=== PATIENT | female | born 1990 | race Caucasian/White ===

== ENCOUNTER 2018-01-06 00:59 | Emergency (ER) | payer BC ==
[~2018-01-06] VITALS: Ht 165.1 cm; Wt 95.3 kg
[~2018-01-06 00:59] MED LIST: APRI28 PO; ASCO10003 PO; ZLF/100 PO
[2018-01-06 01:02] VITALS: TEMP 36.9; Ht 165.1 cm; Wt 95.3 kg
[2018-01-06] MEDS ORDERED: FENTANYL CITRATE INJ 50 MCG/1 ML 2 ML VIAL IV STA (01:18)
[2018-01-06] MEDS ORDERED: SODIUM CHLORIDE 0.9% 1000ML 1,000 ML IV STA (01:18)
[2018-01-06] MEDS ORDERED: ONDANSETRON INJ 2 MG/ML 2 ML VIAL IV STA ×2 (01:18→02:08)
[2018-01-06] MEDS ORDERED: PRLSR20 PO (01:27)
--- NOTE | 2018-01-06 01:32 | EMERGENCY ROOM VISIT NOTE ---
History Report prepared by Trever: Marie Cao Under the Supervision of: Dr. Dylan Hall M.D. First contact with patient: 01:08 Chief Complaint: ABDOMINAL PAIN Stated Complaint: STOMACH PAIN History of Present Illness The patient is a 27 year old female who presents to the Emergency Room with complaints of worsening abdominal pain starting 1.5 months ago. The patient states that she has colonoscopy scheduled for tomorrow morning. She reports that she has been drinking Gatorade and Miralax. She states that she has been moving her bowels and it has been yellow and chunky. She states that yesterday she woke up with the pain much worse in her lower abdomen and had diarrhea. She reports that there was blood in her diarrhea. She notes that this happens intermittently since the abdominal pain started. The patient states that she called her doctor who told her if having worsening pain and chills to come to the ED. She reports that she tried to hold off, but the pain is too much. The patient currently rates her pain as a 7/10 in severity. The patient complains of nausea. The patient denies any imaging done of her abdomen, ever having a colonoscopy before, a family history of Crohn, vomiting, chest pain, shortness of breath, calf pain, leg swelling, and burning with urination. She notes that her urine is very dark and she is not producing enough. Source of History: patient Onset: 1.5 months ago Position: abdomen Symptom Intensity: 7/10 Timing: worsening Associated Symptoms: + nausea, + hematochezia, + diarrhea, No chest pain, No SOB, No vomiting, No urinary symptoms Note: The patient denies calf pain and leg swelling. Review of Systems See HPI for pertinent positives & negatives. A total of 10 systems reviewed and were otherwise negative. Past Medical & Surgical Medical Problems: (1) Anxiety (2) control (3) Heart burn Family History Diabetes mellitus FHx: irritable bowel syndrome Hypertension Social History Smoking Status: Never Smoker Alcohol Use: none Marital Status: Housing Status: lives with family Occupation Status: employed Current/Historical Medications Scheduled Ethinyl Estrad/Desogestrel (Apri), 1 TABLET PO DAILY Omeprazole (Prilosec), 20 MG PO DAILY Sertraline HCl (Sertraline HCl), 150 MG PO DAILY Allergies Coded Allergies: No Known Allergies (Unverified , 01/06/18) Physical Exam Vital Signs Date Time Temp Pulse Resp B/P (MAP) Pulse Ox O2 Delivery O2 Flow Rate FiO2 01/06/18 02:45 75 18 116/72 97 01/06/18 02:22 75 18 116/72 97 Room Air 01/06/18 01:02 36.9 103 20 116/77 96 Room Air Physical Exam GENERAL: Patient is anxious appearing and in mild distress. EYES: No scleral icterus, unremarkable pupils. ENT: Mucous membranes moist, no nasal congestion. NECK: No masses appreciated, no meningismus, trachea is midline. RESPIRATORY: No dyspnea. Clear to auscultation and equal bilaterally. No wheeze , no rhonchi. CARDIOVASCULAR: Regular rate and rhythm. No murmurs, rubs, gallops appreciated. GASTROINTESTINAL: Abdomen soft, vague left lower quadrant tenderness to palpation, no peritonitis. Bowel sounds positive. No masses appreciated. BACK: No midline tenderness, no CVA tenderness EXTREMITIES: Normal motion all extremities, no cyanosis, no edema. NEUROLOGIC: Alert and oriented, no acute motor or sensory deficits, no focal weakness, cranial nerves grossly intact. SKIN: No rash, no jaundice, no diaphoresis. Medical Decision & Procedures ER Provider Diagnostic Interpretation: ABDOMEN OBSTRUCTION SERIES With 1 VIEW OF CHEST: The results were interpreted by me. Scant air throughout the left colon and rectum. No obstruction appreciated. No free air appreciated. Lungs are clear bilaterally. Laboratory Results 01/06/18 01:25 Red Blood Count 4.95, Mean Corpuscular Volume 84.8, Mean Corpuscular Hemoglobin 29.5, Mean Corpuscular Hemoglobin Concent 34.8, Mean Platelet Volume 9.3, Neutrophils (%) (Auto) 61.3, Lymphocytes (%) (Auto) 30.4, Monocytes (%) (Auto) 6.6, Eosinophils (%) (Auto) 1.4, Basophils (%) (Auto) 0.1, Neutrophils # (Auto) 5.53, Lymphocytes # (Auto) 2.75, Monocytes # (Auto) 0.60, Eosinophils # (Auto) 0.13, Basophils # (Auto) 0.01 01/06/18 01:25 Test 01/06/18 01:18 01/06/18 01:19 01/06/18 01:25 01/06/18 02:14 Urine Test NEG (NEG) Urine Color DK YELLOW Urine Appearance CLEAR (CLEAR) Urine pH 5.5 (4.5-7.5) Urine Specific [place] 1.023 (1.000-1.030) Urine Protein NEG (NEG) Urine Glucose (UA) NEG (NEG) Urine Ketones NEG (NEG) Urine Occult Blood NEG (NEG) Urine Nitrite NEG (NEG) Urine Bilirubin NEG (NEG) Urine Urobilinogen NEG (NEG) Urine Leukocyte Esterase NEG (NEG) Urine WBC (Auto) 1-5 /hpf (0-5) Urine RBC (Auto) 0-4 /hpf (0-4) Urine Hyaline Casts (Auto) 0 /lpf (0-5) Urine Epithelial Cells (Auto) >30 /lpf (0-5) Urine Bacteria (Auto) NEG (NEG) Urine Mucus PRESENT (NONE PRSENT) White Blood Count 9.04 K/uL (4.8-10.8) Red Blood Count 4.95 M/uL (4.2-5.4) Hemoglobin 14.6 g/dL (12.0-16.0) Hematocrit 42.0 % (37-47) Mean Corpuscular Volume 84.8 fL (80-100) Mean Corpuscular Hemoglobin 29.5 pg (25-34) Mean Corpuscular Hemoglobin Concent 34.8 g/dl (32-36) Platelet Count 228 K/uL (130-400) Mean Platelet Volume 9.3 fL (7.4-10.4) Neutrophils (%) (Auto) 61.3 % Lymphocytes (%) (Auto) 30.4 % Monocytes (%) (Auto) 6.6 % Eosinophils (%) (Auto) 1.4 % Basophils (%) (Auto) 0.1 % Neutrophils # (Auto) 5.53 K/uL (1.4-6.5) Lymphocytes # (Auto) 2.75 K/uL (1.2-3.4) Monocytes # (Auto) 0.60 K/uL (0.11-0.59) Eosinophils # (Auto) 0.13 K/uL (0-0.5) Basophils # (Auto) 0.01 K/uL (0-0.2) RDW Standard Deviation 38.9 fL (36.4-46.3) RDW Coefficient of Variation 12.6 % (11.5-14.5) Immature Granulocyte % (Auto) 0.2 % Immature Granulocyte # (Auto) 0.02 K/uL (0.00-0.02) Anion Gap 7.0 mmol/L (3-11) Est Creatinine Clear Calc Drug Dose 103.7 ml/min Estimated GFR () 97.6 Estimated GFR (Non- 84.2 BUN/Creatinine Ratio 6.5 (10-20) Calcium Level 8.5 mg/dl (8.5-10.1) Total Bilirubin 0.5 mg/dl (0.2-1) Direct Bilirubin 0.1 mg/dl (0-0.2) Aspartate Amino Transf (AST/SGOT) 20 U/L (15-37) Alanine Aminotransferase (ALT/SGPT) 35 U/L (12-78) Alkaline Phosphatase 92 U/L (45-117) C-Reactive Protein 0.54 mg/dl (0-0.29) Total Protein 8.1 gm/dl (6.4-8.2) Albumin 3.5 gm/dl (3.4-5.0) Lipase 124 U/L (73-393) Date/Time Source Procedure Growth Status 01/06/18 02:14 Stool C.difficile Toxin B Gene (PCR) - Final No C. difficile toxin B gene detected Complete Laboratory results as reviewed by me. Medications Administered Medications (Trade) Dose Ordered Sig/Cuco Route Start Time Stop Time Status Last Admin Dose Admin Sodium Chloride 1,000 ml @ 999 mls/hr Q1H1M STAT IV 01/06/18 01:18 01/06/18 02:18 DC 01/06/18 01:30 999 MLS/HR Fentanyl Citrate (Fentanyl Inj) 50 mcg NOW STAT IV 01/06/18 01:18 01/06/18 01:20 DC 01/06/18 01:31 50 MCG Ondansetron HCl (Zofran Inj) 4 mg NOW STAT IV 01/06/18 01:18 01/06/18 01:20 DC 01/06/18 01:30 4 MG Promethazine HCl 12.5 mg/Sodium Chloride 50.5 ml @ 204 mls/hr NOW STAT IV 01/06/18 02:08 01/06/18 02:22 DC 01/06/18 02:22 204 MLS/HR Ondansetron HCl (Zofran Inj) 4 mg NOW STAT IV 01/06/18 02:08 01/06/18 02:09 DC 01/06/18 02:22 4 MG Diphenhydramine HCl (Benadryl Inj) 25 mg NOW STAT IV 01/06/18 02:08 01/06/18 02:09 DC 01/06/18 02:22 25 MG Ondansetron HCl (ZOFRAN ODT 4MG Home Pack) 1 homepack UD ONCE PO 01/06/18 02:45 01/06/18 02:46 DC 01/06/18 02:43 1 HOMEPACK ED Course 0111: The patient was evaluated in room A10. A complete history and physical exam was performed. 0118: Ordered Zofran Inj 4 mg IV, Fentanyl Inj 50 mcg IV, NSS 1000 ml @ 999 mls/ hr IV. 0204: I reevaluated the patient and she is feeling much better. She still has some nausea, but the pain has gone away. She would like more nausea medications to finish her colon cleanse. 0208: Ordered Zofran Inj 4 mg IV, Promethazine HCl 12.5 mg/Sodium Chloride 50.5 ml @ 204 mls/hr IV. 0240: Reevaluated the patient and she feels much better. Discussed results and discharge instructions: She verbalized understanding and agreement. The patient is ready for discharge. 0245: Ordered ondansetron HCl 1 homepack PO. Medical Decision Differential: Appendicitis, Diverticulitis, PUD/Gastritis, Biliary Pathology, UTI, Pyelonephritis, Renal Colic, Bowel Obstruction, Crohn's, IBS, IBD, amongst other pathologies entertained. 27 yr old female with 1+ month abdominal cramping/diarrhea for which she is to have colonoscopy this morning, however with not eating and having to drink colon prep her pain has increased dramatically along with nausea. Symptoms vastly improved with above and doing well a few hours later in regards to pain. Given further nausea meds to help her be able to take rest of colon prep. There is no current evidence of obstruction, she is not vomiting, and she has benign/soft abdomen. With unremarkable labs and patient feeling much better I feel further imaging is not current warranted. She is stable and looks well. She and significant other comfortable with discharge and understand RTED if worsening or other concerns. Medication Reconcilliation Current Medication List: was personally reviewed by me Blood Pressure Screening Patient's blood pressure: Normal blood pressure Blood pressure disposition: Did not require urgent referral Impression Primary Impression: Nausea Additional Impression: Abdominal pain, left lower quadrant Scribe Attestation The scribe's documentation has been prepared under my direction and personally reviewed by me in its entirety. I confirm that the note above accurately reflects all work, treatment, procedures, and medical decision making performed by me. Departure Information Dispostion Home / Self-Care Referrals Romy Bowden (PCP) Forms HOME CARE DOCUMENTATION FORM, IMPORTANT VISIT INFORMATION Patient Instructions My [facility] Additional Instructions Follow up with Colonoscopy as planned. Try to finish your bowel prep. Use nausea medications as necessary. Return if worsening pain, fevers, passing out or other concerns. We are always here to help. Problem Qualifiers
[2018-01-06 01:33] LABS: BASO % 0.1 %; BASO ABS # 0.01 K/uL (0-0.2); EOS % 1.4 %; EOS ABS # 0.13 K/uL (0-0.5); HEMOGLOBIN 14.6 g/dL (12.0-16.0); IG# 0.02 K/uL (0.00-0.02); LYMPH % 30.4 %; LYMPH ABS # 2.75 K/uL (1.2-3.4); MEAN CELL VOLUME 84.8 fL (80-100); MEAN CORPUSCULAR HEMOGLOBIN 29.5 pg (25-34); MEAN CORPUSCULAR HGB CONC 34.8 g/dl (32-36); MEAN PLATELET VOLUME 9.3 fL (7.4-10.4); MONO % 6.6 %; NEUT % 61.3 %; NEUT ABS # 5.53 K/uL (1.4-6.5); PLATELET COUNT 228 K/uL (130-400); RED CELL DISTRIBUTION WIDTH CV 12.6 % (11.5-14.5); RED CELL DISTRIBUTION WIDTH SD 38.9 fL (36.4-46.3); WHITE BLOOD COUNT 9.04 K/uL (4.8-10.8)
[2018-01-06 01:54] LABS: ALBUMIN 3.5 gm/dl (3.4-5.0); CALCIUM 8.5 mg/dl (8.5-10.1); CREATININE 0.93 mg/dl (0.60-1.20); POTASSIUM 3.5 mmol/L (3.5-5.1)
[2018-01-06 01:57] LABS: TOTAL PROTEIN 8.1 gm/dl (6.4-8.2)
[2018-01-06] MEDS ORDERED: PROMETHAZINE HCL INJ 12.5 MG in SODIUM CHLORIDE 0.9% 50ML 50 ML IV STA (02:08)
[2018-01-06] MEDS ORDERED: DiphenhydrAMINE HCL 50 MG/ML VIAL IV STA (02:08)
[2018-01-06 02:45] VITALS: BP 116/72; PULSE 75; O2SAT 97
[2018-01-06] MEDS ORDERED: ONDANSETRON HOME PACK 4MG OD TAB PO ONE (02:45)
--- NOTE | 2018-01-06 06:31 | DIAGNOSTIC IMAGING REPORT ---
ABDOMEN 2VIEW W/PA CHEST RTN CLINICAL HISTORY: abdominal discomfort, diarrhea post bowel regimen pain COMPARISON STUDY: 10/20/2017 FINDINGS: The soft tissues, psoas shadows, renal outlines and intestinal gas pattern appear normal. There is no evidence for bowel obstruction. There is no evidence for free intraperitoneal air. No abnormal abdominal calcifications are seen. A frontal view of the chest was performed and is unremarkable. IMPRESSION: Normal study. The above report was generated using voice recognition software. It may contain grammatical, syntax or spelling errors. Electronically signed by: Josue Darden M.D. 01/06/2018 6:30 AM Dictated Date/Time: 01/06/2018 6:29 AM
== END 2018-01-06 02:46 | disposition home or self-care (01) ==
LOC: C.EDB 01:00 → C.EDA 02:46
DX: R10.32 Left lower quadrant pain (principal); R11.0 Nausea; F41.9 Anxiety disorder, unspecified; Z79.3 Long term (current) use of hormonal contraceptives; Z79.899 Other long term (current) drug therapy; Z83.3 Family history of diabetes mellitus; Z82.49 Family history of ischemic heart disease and other diseases of the circulatory system; Z83.79 Family history of other diseases of the digestive system

== ENCOUNTER 2024-10-21 05:57 | Observation (INO) ==
--- NOTE | 2024-10-11 15:49 | PAT Medication Instructions ---
Medication Instructions Date of Service October 11, 2024 Home Medications multivitamin 1 tab PO QAM desvenlafaxine succinate 100 mg tablet,extended release 24 hr (Pristiq) 100 mg PO QAM desvenlafaxine succinate 25 mg tablet,extended release 24 hr (Pristiq) 25 mg PO QAM gabapentin 300 mg capsule 300 mg PO QPM DO NOT take the morning of surgery multivitamin 1 tab PO QAM Take morning of surgery With a small sip of water, OTHERWISE NOTHING TO EAT OR DRINK AFTER MIDNIGHT: desvenlafaxine succinate 100 mg tablet,extended release 24 hr (Pristiq) 100 mg PO QAM desvenlafaxine succinate 25 mg tablet,extended release 24 hr (Pristiq) 25 mg PO QAM Take evening before surgery gabapentin 300 mg capsule 300 mg PO QPM Other Notes If you have any questions please call us at [phone] or [phone] or [phone] or [phone]
--- NOTE | 2024-10-14 14:24 | Anesthesiology Consultation ---
Date of Service October 14, 2024 Assessment & Plan (1) Encounter for pre-operative examination: Chart Review Chart Review: Acceptable Risk for Surgery and Patient seen in Pre Admission Testing - Check test AM DOS Per PAT appt on 10/14/24, no recent illness/disease exposures, illness related symptoms, or recent illness/disease positive tests. Will leave to surgeon's discretion if preop Covid testing needed Teaching & Discussion Pre-Anesthesia Teaching/Discussion Notes: Instructed NPO after midnight before surgery,except medications with 15 cc of water. Medication instructions provided according to the [facility] guidelines. History Surgery Operation Date: 10/21/24 07:30 Proposed Procedures p C5-C6 Anterior Cervical Discectomy Fusion, with Spinal Cord Monitoring - Mika Butler MD Height/Weight Height: 5 ft 6 in Weight: 128.1 kg Allergies Allergy/AdvReac Type Severity Reaction Status Date / Time No Known Allergies Allergy Mild Verified 10/11/24 15:17 Medications Home Medications Medication Instructions Recorded Confirmed Last Taken multivitamin 1 tab PO QAM 12/03/22 10/11/24 12/04/22 07:00 desvenlafaxine succinate 100 mg 100 mg PO QAM 11/12/23 10/11/24 Unknown tablet,extended release 24 hr (Pristiq) desvenlafaxine succinate 25 mg 25 mg PO QAM 11/12/23 10/11/24 Unknown tablet,extended release 24 hr (Pristiq) gabapentin 300 mg capsule 300 mg PO QPM 07/26/24 10/11/24 Unknown Past Medical History Medical History (Updated 10/17/24 @ 11:48 by Carol Gudino PA-C) Acid reflux diet controlled; uses occ OTC antacids at times ADD (attention deficit disorder) no meds Anxiety and depression Cervical disc herniation full rom, but very painful Cervical radiculopathy Cervical spinal stenosis History of COVID-19 05/2022>RESOLVED History of palpitations work up in past showed no issues ~ October 2023 Hx of migraines once per month IBS (irritable bowel syndrome) Paresthesia of left upper extremity from cervical issue PCOS (polycystic ovarian syndrome) Exercise / Class Metabolic Activity II 4-5 Yardwork/Stairs/Walk up hill (one flight of stairs - no chest pain or SOB ) Past Family History Family History Grandfather (Paternal) Myocardial infarction Father Diabetes Hypertension Mother Hypertension Other No family history of adverse response to anesthesia Denies family history of Ovarian cancer Prostate cancer Breast cancer Colorectal cancer Past Surgical History Surgical History H/O ovarian cystectomy (12/05/22) R serous cystadenoma removed, endometriosis diagnosed intraop at same time. History of esophagogastroduodenoscopy (EGD) Hx of colonoscopy with polypectomy [place] teeth removed Past Anesthesia History No Hx of Anesthesia Complications and No Family Hx of Anesthesia Complications History of PONV No Hx of PONV and No Hx of Motion Sickness Social History Smoking Status: Never smoker Do You Dip or Chew Tobacco: No Hx Alcohol Use: Yes alcohol intake frequency: holidays/special occasions only Hx Substance Use: No substance use type: does not use Review of Systems - Hx of snoring - no sleep study Patient denies chest pain, shortness of breath, dyspnea on exertion, cough, wheezing, palpitations. No hx of seizures, stroke, AL. No hx of blood clots or blood transfusions Physical Exam Vital Signs VITALS BP 10/84 (manually) P 75 TEMP 97.8 SP02 98% RESP 16 Constitutional no acute distress ENMT Mouth: no TMJ clicking Thyromental Distance: > or= 3.5 Finger Breadths (3.5) Mallampati Class: I Neck + limited neck extension (significant) Respiratory normal respiratory effort; no respiratory distress Auscultation: lungs clear to auscultation bilaterally; no wheezes Cardiovascular Rate/Rhythm: regular rate and regular rhythm Heart Sounds: no murmur Vessels: no carotid bruit Musculoskeletal Spine: + pain with cervical ROM Extremities: extremities normal to inspection Psychiatric Orientation: alert Lab Results Anesthesia Preop Results Results Anesthesia Widget: WBC 5.97 K/ul (4.8-10.8) 10/14/24 Hgb 14.4 g/dl (12.0-16.0) 10/14/24 Hct 41.5 % (37.0-47.0) 10/14/24 Plt 250 K/uL (130-400) 10/14/24 Na 137 mmol/L (136-145) 10/14/24 K 3.8 mmol/L (3.5-5.1) 10/14/24 Cl 103 mmol/L (98-107) 10/14/24 CO2 27 mmol/L (21-32) 10/14/24 BUN 13 mg/dl (6-23) 10/14/24 Creat 0.95 mg/dl (0.6-1.2) 10/14/24 Glucose Level 86 mg/dl (70-99(Fasting)) 10/14/24 PT 10.3 Seconds (9.0-12.0) 10/14/24 PTT 29 Seconds (21-31) 10/14/24 INR 0.9 (0.9-1.1) 10/14/24 HA1c 5.4 % (4.5-5.6) 10/14/24 Blood Type A Positive 10/14/24 Antibody Screen NEGATIVE 10/14/24 Testing Electrocardiogram Date: 11/12/23 SR at 85bpm Normal EKG per confirming provider Other Testing Event monitor 12/19/23= SR with average HR of 85bpm (50-156bpm). No arrhythmia. No significant ectopy. There were 42 patient triggered events (SOB, chest pain, skipped beat, heart racing). Symptoms occurred during NSR and ST.
[2024-10-21] MEDS ORDERED: PROPOFOL IV EMULSION 10 MG/ML 100 ML VIAL IV ONE (06:43)
[2024-10-21] MEDS ORDERED: REMIFENTANIL HCL 1 MG VIAL IV ONE (06:43)
[2024-10-21] MEDS ORDERED: ACETAMINOPHEN 1000 MG/100 ML IV IV ONE (06:43)
[2024-10-21] MEDS ORDERED: fentaNYL citrate PF 100 MCG/2 ML VIAL IV PRN (06:49)
[2024-10-21] MEDS ORDERED: ATROPINE SULFATE 0.1 MG/ML 10ML SYR IV PRN (06:49)
[2024-10-21] MEDS ORDERED: ePHEDrine sulfate 50 MG/ML AMP IV PRN (06:49)
[2024-10-21] MEDS ORDERED: ONDANSETRON INJ 2 MG/ML 2 ML VIAL IV PRN ×2 (06:49→12:49)
[2024-10-21] MEDS ORDERED: HYDROmorphone INJ 2 MG/ML SYR/VIAL IV PRN (06:49)
[2024-10-21] MEDS ORDERED: ROCURONIUM BROMIDE 10 MG/ML 5 ML VIAL IV ONE (06:51)
[2024-10-21] MEDS ORDERED: NEOSTIGMINE METHYLSULFATE 1 MG/ML 10ML VIAL ONE (06:51)
[2024-10-21] MEDS: LR 15ML/HR IV SCH (06:51)
[2024-10-21] MEDS: LR 60ML/HR IV SCH (06:51)
[2024-10-21] MEDS ORDERED: MIDAZOLAM HCL 1 MG/ML 2ML VIAL ONE (06:51)
[2024-10-21] MEDS ORDERED: GLYCOPYRROLATE 0.2 MG/ML VIAL ONE (06:51)
[2024-10-21] MEDS ORDERED: LIDOCAINE 2% 2 ML VIAL/AMP(20MG/ML) INFIL ONE (06:51)
[2024-10-21] MEDS ORDERED: fentaNYL citrate PF 100 MCG/2 ML VIAL ONE (06:51)
[2024-10-21] MEDS ORDERED: DEXAMETHASONE SOD INJ 4 MG/ML VIAL ONE (06:51)
[2024-10-21] MEDS ORDERED: PROPOFOL IV EMULSION 10 MG/ML 20 ML VIAL IV ONE ×2 (06:51→07:55)
[2024-10-21] MEDS ORDERED: ONDANSETRON INJ 2 MG/ML 2 ML VIAL ONE (06:51)
[2024-10-21] MEDS ORDERED: KETAMINE HCL 10MG/ML SYR ONE (07:14)
[2024-10-21] MEDS ORDERED: DexMEDEtomidine HCL IV 100 MCG/ML VIAL IV ONE (07:14)
[2024-10-21] MEDS ORDERED: SUCCINYLCHOLINE CHLORIDE 20 MG/ML 10 ML VIAL IV ONE (07:22)
--- NOTE | 2024-10-21 07:22 | History & Physical Bridge Note ---
Date of Service October 21, 2024 History & Physical Bridge Note I have examined the patient, reviewed the History & Physical and in the interval since the performance of the History & Physical I have noted the following changes of clinical significance: no changes noted
[2024-10-21] MEDS: ceFAZolin 3000MG 3,000 MG/72.5 ML BAG IV SCH (07:30)
[2024-10-21] MEDS ORDERED: HYDROmorphone INJ 2 MG/ML SYR/VIAL ONE (07:57)
[2024-10-21] MEDS ORDERED: PROMETHAZINE HCL INJ 25 MG/ML 1 ML VIAL ONE (08:37)
[2024-10-21] MEDS: FLOSEAL HEMOSTATIC MATRIX 10ML TOP ONE (10:22)
[2024-10-21] MEDS: VANCOMYCIN HCL 1000MG/20ML VIAL ONE (10:23)
--- NOTE | 2024-10-21 10:49 | Fluoroscopy Report ---
FL cervical 2-3V CLINICAL HISTORY: ACDF C5-C6 COMPARISON STUDY: None pertinent FLUOROSCOPY TIME: 29 seconds FLUOROSCOPY IMAGES: 5 EXPOSURE DOSE: 8.19 mGy FINDINGS: Fluoroscopic guidance for anterior discectomy and fusion was performed. C5-6 placement was localized. Refer to procedural report for analysis patient upon real-time fluoroscopic observations. IMPRESSION: As above ACT 112: Negative or not required by law. Electronically signed by: Nenita Velazquez M.D. 10/21/2024 10:48 AM
--- NOTE | 2024-10-21 10:50 | Operative Report ---
PG Post Operative Report Pre & Post Diagnosis Operation Date: 10/21/24 07:30 PREOPERATIVE DIAGNOSES: 1. Cervical radiculopathy. 2. C5-6 disc herniation. 3. Cervical stenosis. POSTOPERATIVE DIAGNOSES: 1. Cervical radiculopathy. 2. C5-6 disc herniation. 3. Cervical stenosis. I identified the patient and participated in the time-out.: Yes Procedure PROCEDURES PERFORMED: 1. C5-6 anterior cervical decompression and fusion (80692). 2. C5-6 interbody spacer placement with arthrodesis (31637). 3. C5, C6 anterior instrumentation (separate from interbody spacer) (73619). 6. Allograft for Spine Fusion (82839). Surgeon Mika Butler MD Sludge Mill Operator Joss Meade PA-C Estimated Blood Loss 25 Findings Consistent with Post-Op Diagnosis Specimens None Drains Aris Anesthesia Type General Complications none Disposition Disposition: Recovery Room Indications The patient has suffered from severe and unrelenting symptoms despite exhaustive conservative management. After discussing the benefits and risks of continued conservative management versus operative intervention, the patient elected to proceed with surgery. Description of Procedure Informed consent was obtained prior to the procedure. In the preoperative holding area, the patient's anterior neck was marked with a marking pen. The patient was taken to the operating room and anesthesia was initiated. The patient was placed supine on a regular operating room table. The neck was placed in a neutral position. All prominences were carefully padded. The anterior neck was prepped and draped in typical sterile fashion. Antibiotics were administered. A timeout was performed. Neuromonitoring was utilized, including somatosensory evoked potentials, running electromyography and motor evoked potentials. These remained stable throughout the case. A #10 blade was used to incise the skin. Bovie electrocautery was used to maintain meticulous hemostasis as dissection was completed through the subcutaneous and platysma. The interval between the sternocleidomastoid and the strap musculature was identified and bluntly dissected. The carotid sheath was palpated, retracted laterally and protected. The anterior cervical spine was identified and exposed. A spinal needle was placed into the disc space to confirm the appropriate levels using x-ray. The longus colli were carefully elevated off the anterior spine laterally. Care was taken to not dissect too laterally so as to protect the sympathetic chains. Anterior osteophytes were removed. Shumway pins were placed and a small amount of distraction was applied across the C5-6 disc space. The microscope was brought in. A total discectomy along with bilateral foraminotomies were completed. The posterior longitudinal ligament was taken down. The central thecal sac and the bilateral C6 exiting nerve roots were confirmed to be completely decompressed. The endplates were prepared. An interbody spacer was selected and implanted after being packed with allograft. An anterior cervical plate was selected and implanted. Screws were placed into the bodies of C5 and C6. The screws were locked into the plate. X-rays were taken and confirmed appropriate spacer and hardware position. The wound was thoroughly irrigated. Meticulous hemostasis was achieved. A single drain was placed deep. The platysma and subcutaneous were closed using braided, absorbable suture. The cutaneous was closed using monofilament absorbable suture. A sterile dressing was placed. At the end of the case, all instrument and sponge counts were correct. The patient was awoken from anesthesia without complication and taken to the PACU in stable condition. I attest to the content of the Intraoperative Record and any orders documented therein. Any exceptions are noted below.
--- NOTE | 2024-10-21 12:31 | Anesthesiology Progress Note ---
Date of Service October 21, 2024 Anesthesia Post Procedure Vital Signs Vital Signs: Temp Pulse Pulse Resp BP BP Pulse Ox 10/21/24 12:25 87 16 115/77 95 10/21/24 12:15 36.9 C 88 13 119/84 98 10/21/24 12:05 76 24 118/72 98 10/21/24 11:55 84 12 115/77 95 10/21/24 11:45 88 16 111/73 94 10/21/24 11:35 84 18 108/81 97 10/21/24 11:25 82 18 120/75 95 10/21/24 11:19 36.6 C 94 H 18 162/100 H 94 10/21/24 06:21 36.5 C 78 20 121/83 94 O2 Del Method O2 Flow Rate 10/21/24 12:25 Nasal Cannula 2 10/21/24 12:15 Nasal Cannula 2 10/21/24 12:05 Nasal Cannula 4 10/21/24 11:55 Nasal Cannula 4 10/21/24 11:45 Oxymask 10 10/21/24 11:35 Oxymask 15 10/21/24 11:25 Oxymask 15 10/21/24 11:19 Oxymask 15 10/21/24 06:21 Room Air Pain Intensity Bilateral Posterior Neck: Pain Intensity: 6 Transfer of Care Handoff Completed per policy Notes Mental Status: alert / awake / arousable and participated in evaluation Patient Amnestic to Procedure: Yes Nausea / Vomiting: adequately controlled Pain: adequately controlled Airway Patency, RR, SpO2: stable & adequate BP & HR: stable & adequate Hydration State: stable & adequate Anesthetic Complications: no major complications apparent and Pt Satisfied with anesthetic care
[2024-10-21] MEDS ORDERED: DO NOT ADMINISTER PNEUMOCOCCAL VACCINE PRN (12:49)
[2024-10-21] MEDS ORDERED: SOD PHOSPHATE/SOD BIPHOSPHATE ENEMA 132 ML BTL PR PRN (12:49)
[2024-10-21] MEDS ORDERED: hydrOXYzine HCl 25 MG TAB PO PRN (12:49)
[2024-10-21] MEDS ORDERED: ALUMINUM/MAGNESIUM SUSP 30 ML UDC PO PRN (12:49)
[2024-10-21] MEDS ORDERED: LORazepam 0.5 MG TAB PO PRN (12:49)
[2024-10-21] MEDS ORDERED: dexAMETHasone 8 MG in SYRINGE 0 ML IV PRN (12:49)
[2024-10-21] MEDS ORDERED: ACETAMINOPHEN 500 MG TAB PO PRN (12:49)
[2024-10-21] MEDS ORDERED: PROMETHAZINE 12.5 MG/50.5 ML BAG IV PRN (12:49)
[2024-10-21] MEDS ORDERED: diphenhydrAMINE Capsule 25 MG CAP PO PRN (12:49)
[2024-10-21] MEDS ORDERED: MAGNESIUM HYDROXIDE SUSP 30 ML UDC PO PRN (12:49)
[2024-10-21] MEDS ORDERED: FAMOTIDINE 20 MG TAB PO PRN (12:49)
[2024-10-21] MEDS ORDERED: DO NOT ADMINISTER FLU VACCINE PRN (12:49)
[2024-10-21] MEDS ORDERED: bisacodyL 10 MG SUPP PR PRN (12:49)
[2024-10-21] MEDS ORDERED: ONDANSETRON 4 MG OD TAB PO PRN (12:49)
[2024-10-21] MEDS ORDERED: RACEPINEPHRINE 2.25% NEBU SOLN 0.5 ML VIAL INH PRN (12:49)
[2024-10-21] MEDS ORDERED: LORazepam 2 MG/1 ML VIAL IV PRN (12:49)
[2024-10-21] MEDS ORDERED: NALOXONE HCL 0.4 MG/1 ML VIAL/CARP IV PRN (12:49)
[2024-10-21] MEDS ORDERED: HYDROmorphone INJ 1 MG/ML SYRINGE IV PRN (12:49)
[2024-10-21] MEDS: CYCLOBENZAPRINE HCL 10 MG TAB PO SCH (15:09)
[2024-10-21] MEDS: dexAMETHasone 6 MG in SYRINGE 0 ML IV SCH (15:09)
--- NOTE | 2024-10-21 15:46 | XRay Report ---
XR cervical spine 2 or 3V CLINICAL HISTORY: post-op spine surgery COMPARISON STUDY: Cervical spine MRI July 18, 2024. FINDINGS: These images demonstrate a C5-C6 anterior discectomy and fusion. Surgical drain is in place . The hardware is intact. No unexpected radiopaque foreign bodies. No cervical spine fractures are id entified. IMPRESSION: Postoperative radiographs demonstrating C5-C6 anterior discectomy and fusion. ACT 112: Negative or not required by law. Electronically signed by: Brijesh Villanueva M.D. 10/21/2024 3:44 PM
[2024-10-21] MEDS: ceFAZolin 2000MG 2,000 MG/15 ML SYR IV SCH (17:01)
[2024-10-21] MEDS: oxyCODONE/ACETAMINOPHEN 5mg/325mg TAB PO PRN (19:06)
[2024-10-21] MEDS: COUGH DROP (SUGAR FREE) LOZ 24 LOZ/1 BOX BUCCAL ONE (19:07)
[2024-10-21] MEDS: HYDROmorphone INJ 0.5 MG/0.5 ML SYR IV PRN (19:50)
[2024-10-21] MEDS: DOCUSATE SODIUM/SENNA 50/8.6MG TAB PO SCH (21:10)
[2024-10-21] MEDS: GABAPENTIN 300 MG CAP PO SCH (21:10)
[2024-10-22] MEDS: POLYETHYLENE (MIRALAX) 17 GM PACK PO SCH (06:22)
[2024-10-22] MEDS ORDERED: DESVENLAFAXINE SUCCINATE 25 MG PO SCH (09:00)
--- NOTE | 2024-10-22 09:09 | Orthopedic Progress Note ---
Date of Service October 22, 2024 Assessment & Plan (1) S/P cervical spinal fusion: WBAT, AAT PT mobilize advance diet as tolerated pain control - percocet and flexeril prn dc drain Subjective s/p ACDF, radicular pain improved, no breathing issues, slow to wake up in PACU, on room air since early this AM. Voiding, tolerating PO with mild dysphagia. Review of Systems All systems reviewed & are unremarkable except as noted in HPI & below. Physical Exam Neuro intact V5-T1 myotomes and dermatomes JL minimal output Results & Data Results & Data Laboratory Results . Diagnostic Findings . PG Care Time/CCT Total # of Minutes Spent Total Time Spent with Patient: Total time spent is greater than 50% in coordination of care (as documented) at patient's floor/unit and/or counseling patient: Coding Level of Care Code 44128 Post Operative Follow-Up Diagnoses S/P cervical spinal fusion Z98.1
--- NOTE | 2024-10-22 09:20 | Discharge Summary ---
Date of Service October 22, 2024 Principal Diagnosis Same as "Discharge Diagnosis" noted below under Discharge Instructions. Discharge Exam Neuro intact V5-T1 myotomes and dermatomes JL minimal output Discharge Data Procedures Performed Operation Date: 10/21/24 07:30 Actual Procedures p C5-C6 Anterior Cervical Discectomy Fusion, Spinal Cord Monitoring(Not Applicable) - Mika Butler MD Ordered Studies 10/21/24 07:30 FL cervical 2-3V Routine Hospital Course (1) S/P cervical spinal fusion: Plan Admitted for pain control and airway monitoring s/p ACDF C5-6. Uneventful post op course, pain controlled on PO meds, tolerated soft diet, voiding, ambulating, no airway issues. Drain removed POD #1 and deemed fit for discharge to home. PG Care Time/CCT Total # of Minutes Spent Total Time Spent with Patient: Total time spent is greater than 50% in coordination of care (as documented) at patient's floor/unit and/or counseling patient: Discharge Plan Discharge Items Patient Disposition: Home - Self-Care Reason For Visit: Cervical Disc Herniation, Cervical Radiculopathy, Discharge Diagnosis: s/p cervical fusion Cervical Radiculopathy Activity: As commented below Activity Comment: follow instruction sheet from clinic Lifting: No more than 5 pounds Bathing Comment: follow instruction sheet Non-emergency contact: Surgeon Call non-emergency contact if: your pain is worsening, your temperature is above 101, your wound has increased redness and your wound has increased drainage Follow-up/Referrals: Aydee Dumont DO [Primary Care Provider] - Diet: Regular Diet Comment: soft diet, advance to regualr diet as tolerated Addtl Attending Provider Instructions: Follow up in office [address] Butler follow post op instruction sheet from clinic Pending Studies at Discharge: No Stand-Alone Forms: [employer], Smoking Cessation Medications and DC Order Prescriptions: New oxycodone-acetaminophen [Percocet] 5-325 mg Tablet 1 - 2 tab PO Q6H PRN (Reason: pain) 14 Days Qty: 60 0RF cyclobenzaprine 10 mg Tablet 10 mg PO Q8 PRN (Reason: muscle spasm) Qty: 90 0RF Continued desvenlafaxine succinate [Pristiq] 100 mg tablet extended release 24 hr 100 mg PO QAM Rx Instructions: plus 25 mg desvenlafaxine succinate [Pristiq] 25 mg tablet extended release 24 hr 25 mg PO QAM Rx Instructions: plus 100 mg gabapentin 300 mg capsule 300 mg PO QPM multivitamin Tablet 1 tab PO QAM Discharge Orders: Discharge Order (Routine); Ordered 10/22/24 Ordered By: Mika Butler Admission Data Admit Date/Time: 10/21/24 10:29 Attending Provider: Mika Butler Admit Provider: Mika Butler Primary Care Provider: Aydee Dumont
[2024-10-22 09:27] VITALS: BP 133/83; TEMP 98.4
[2024-10-22 11:12] VITALS: PULSE 102; RESP 18; O2SAT 94
== END 2024-10-22 11:34 | disposition home or self-care (01) ==
LOC: 3E 05:57 → ASU 05:57